=== PATIENT | female | born 1970 ===

== ENCOUNTER 2017-07-01 09:40 | Outpatient (CLI) | payer OTHER ==
--- NOTE | 2017-07-01 14:22 | Mammography Report ---
BILATERAL DIGITAL SCREENING MAMMOGRAM with CAD: 07/01/17 09:40:00 CLINICAL: Routine screening. COMPARISON:None available. FINDINGS: The breasts are heterogeneously dense, which may obscure small masses. Left asymmetries require additional imaging. No architectural distortion or suspicious calcifications. The right breast is negative.No architectural distortion or suspicious calcifications. IMPRESSION: Left asymmetries requiring further workup. BI-RADS CATEGORY: 0 -- Additional Imaging Evaluation Required RECOMMENDATION: Recall for left mediolateral , spot compression CC and MLO views and left breast ultrasound if needed. ACR BI-RADS MAMMOGRAPHIC CODES: 0 = Needs additional imaging evaluation; 1 = Negative; 2 = Benign; 3 = Probably benign; 4 = Suspicious; 5 = Malignant; 6 = Known biopsy-proven malignancy COMMENT: 1. Dense breast tissue, ie., adenosis, fibrocystic changes, etc., may obscure an underlying neoplasm. 2. Approximately 10% of cancers are not detected with mammography. 3. A negative mammography report should not delay biopsy if a clinically suspicious mass is present. COMMENT: Patient follow-up letters are generated via our [employer] application.
== END 2017-07-01 09:41 | disposition home or self-care (01) ==
LOC: SPVWC 09:40
PROVIDERS: ATTEND Family Medicine
DX: Z12.31 Encounter for screening mammogram for malignant neoplasm of breast (principal)
CPT/HCPCS: 77067; G0202

== ENCOUNTER 2017-07-15 10:27 | Outpatient (CLI) | payer OTHER ==
--- NOTE | 2017-07-15 13:59 | Mammography Report ---
LEFT DIGITAL DIAGNOSTIC MAMMOGRAM and LEFT BREAST ULTRASOUND: 07/15/17 10:27:00 CLINICAL: Recalled for asymmetry. COMPARISON:07/01/17 screening FINDINGS: ML and spot compression MLO and CC views were performed. Satisfactory effacement of asymmetry on the CC viewbut persistent asymmetry on lateral and MLO spot views. Ultrasound of the left breast (including all four quadrants and the retroareolar area) was performed and demonstrated no mass or cyst to correlate with the mammographic asymmetry. A benign retroareolar cyst at 7 o'clock measures 4 x 3 x 4 mm in a benign cyst at 9 o'clock 3 cm from nipple measures 4 x 3 x 3 mm. IMPRESSION: A probably benign summation density of the left breast. BI-RADS CATEGORY: 3 - - Probably Benign RECOMMENDATION: Six month followup left mammogram. We will also attempt to obtain her prior mammograms from [place] and that may alleviate the need for a return mammogram. ACR BI-RADS MAMMOGRAPHIC CODES: 0 = Needs additional imaging evaluation; 1 = Negative; 2 = Benign; 3 = Probably benign; 4 = Suspicious; 5 = Malignant; 6 = Known biopsy-proven malignancy COMMENT: 1. Dense breast tissue, i.e., adenosis, fibrocystic changes, etc., may obscure an underlying neoplasm. 2. Approximately 10% of cancers are not detected with mammography. 3. A negative mammography report should not delay biopsy if a clinically suspicious mass is present. COMMENT: Patient follow-up letters are generated via our [employer] application.
== END 2017-07-15 10:28 | disposition home or self-care (01) ==
LOC: SPVWC 10:27
PROVIDERS: ATTEND Family Medicine
DX: N60.02 Solitary cyst of left breast (principal)
CPT/HCPCS: 76641; G0206